=== PATIENT | female | born 1990 | race African-American/Black ===

== ENCOUNTER 2020-11-18 02:04 | Emergency (ER) | payer OTHER ==
[~2020-11-18] VITALS: Ht 160 cm; Wt 63.5 kg
[2020-11-18 03:19] LABS: PLATELET COUNT 192 K/uL (152-353)
[2020-11-18 03:28] LABS: POTASSIUM 3.5 mmol/L (3.6-5.2)
[2020-11-18 04:55] VITALS: BP 110/60; TEMP 98.5
== END 2020-11-18 04:55 | disposition home or self-care (01) ==
LOC: ED 02:04
PROVIDERS: Emergency Medicine
DX: U07.1 COVID-19 (principal)
CPT/HCPCS: 36415; 80053; 81000; 85027; 87635; 87651; 93005; 96372; 99283; J0696; U0003